=== PATIENT | female | born 1985 | race Caucasian/White ===

== ENCOUNTER 2016-11-20 08:12 | Outpatient (CLI) | payer OTHER | END 2016-11-20 08:13 | disposition home or self-care (01) | DX: E04.2 Nontoxic multinodular goiter (principal) ==

== ENCOUNTER 2016-11-20 09:57 | Outpatient (CLI) | payer OTHER | END 2016-11-20 09:58 | disposition home or self-care (01) | DX: E04.9 Nontoxic goiter, unspecified (principal); Z13.9 Encounter for screening, unspecified ==

== ENCOUNTER 2016-12-11 09:29 | Outpatient (CLI) | payer OTHER ==
[2016-12-11] MEDS ORDERED: BUFFERED LIDOCAINE 10 ML SYRINGE IU ONE (12:03)
== END 2016-12-11 09:30 | disposition home or self-care (01) ==
DX: E04.1 Nontoxic single thyroid nodule (principal)

== ENCOUNTER 2017-08-20 16:00 | Outpatient (CLI) | payer OTHER ==
--- NOTE | 2017-08-21 09:52 | XRAY Report ---
THREE-VIEW RIGHT THUMB: 08/20/2017 CLINICAL INDICATION: Pain. FINDINGS: AP, lateral, oblique views of the right thumb demonstrate no evidence of fracture or dislo cation. The joint spaces are preserved. No radiopaque foreign body is seen in the soft tissues. IMPRESSION: NORMAL RIGHT THUMB. JOB #: [id number] EXT JOB #:[id number]
--- NOTE | 2017-08-21 09:53 | XRAY Report ---
THREE-VIEW RIGHT HAND: 08/20/2017 CLINICAL INDICATION: Sprain, pain. FINDINGS: AP, lateral, oblique views of the right hand demonstrate no evidence of fracture or disloc ation. The joint spaces are preserved. No radiopaque foreign body is seen in the soft tissues. IMPRESSION: NORMAL RIGHT HAND. JOB #: [id number] EXT JOB #:[id number]
== END 2017-08-20 16:01 | disposition home or self-care (01) ==
LOC: DI.S 16:00
PROVIDERS: ATTEND Physician Assistant Medical
DX: S63.681A Other sprain of right thumb, initial encounter (principal)
CPT/HCPCS: 73140

== ENCOUNTER 2018-11-11 08:00 | Outpatient (CLI) | payer OTHER ==
--- NOTE | 2018-11-11 10:47 | Ultrasound Report ---
Reason: THYROID NODULE Procedure Date: 11/11/2018 Accession Number: [id number] / [id number] Procedure: US - Head or Neck Soft Tissue CPT Code: FULL RESULT: EXAM: THYROID ULTRASOUND EXAM DATE: 11/11/2018 08:20 AM. CLINICAL HISTORY: Thyroid nodule. COMPARISON: Head or neck soft tissue 11/20/2016 8:42 AM. Fine needle aspiration 12/11/2016 9:55 AM. TECHNIQUE: Real time sonographic imaging of the thyroid was performed by the business strategy manager. Multiple customer loyalty representative static images were saved for review. FINDINGS: THYROID GLAND: Right Lobe: 5.2 x 1.6 x 1.9 cm, volume 8.3 cc. Mildly heterogeneous background echotexture with mildly prominent vascularity of the thyroid gland, similar to prior. Right Lobe Nodules: None. Left Lobe: 6.7 x 2.0 x 2.3 cm, volume 16.1 cc. Normal background echotexture. Left Lobe Nodules: The previously biopsied superior pole vascular solid nodule measures 2.0 x 1.0 x 1.8 cm on today's exam (previously reported as 2.1 x 0.8 x 1.3 cm). The smaller hypoechoic vascular left upper pole nodule now measures 1.5 x 0.8 x 1.6 cm compared to a previous 1.4 x 0.7 x 1.3 cm. Isthmus: 0.33 cm AP. Isthmic Nodules: None. LYMPH NODES: No adenopathy demonstrated in the central or lateral compartment. OTHER: None. IMPRESSION: Interval evolution of the 2 known left superior pole thyroid nodules as described. Given sonographic features and size, tissue sampling of the smaller of the 2 nodules in the upper pole of the left thyroid gland is also warranted. Recommendation: FNA of the 1.6 cm hypoechoic left thyroid nodule. Management recommendations are based on 2015 [place] [employer] Management Guidelines for Adult Patients with Thyroid Nodules and Differentiated Thyroid Cancer. RADIA
== END 2018-11-11 08:01 | disposition home or self-care (01) ==
LOC: DI 08:00
PROVIDERS: ATTEND Physician Assistant Medical
DX: E04.1 Nontoxic single thyroid nodule (principal); E04.2 Nontoxic multinodular goiter
CPT/HCPCS: 76536

== ENCOUNTER 2018-11-11 08:03 | Outpatient (CLI) | payer OTHER | END 2018-11-11 08:04 | disposition home or self-care (01) | LOC: DI 08:03 | PROVIDERS: ATTEND Physician Assistant Medical | DX: R01.1 Cardiac murmur, unspecified (principal); E04.2 Nontoxic multinodular goiter | CPT/HCPCS: 76536; 93306 ==

== ENCOUNTER 2018-11-22 10:54 | Emergency (ER) | payer OTHER ==
[2018-11-22] MEDS ORDERED: MAG HYDROX/AL HYDROX/SIMETH 30 ML UDC PO STA (11:37)
[2018-11-22] MEDS ORDERED: LIDOCAINE VISCOUS 2% 15 ML UDC MM STA (11:37)
[2018-11-22 12:06] LABS: BASOPHILS % (AUTO) 0.5 %; EOSINOPHILS # (AUTO) 0.1 10^3/uL (0.0-0.7); EOSINOPHILS % (AUTO) 1.7 %; HGB - HEMOGLOBIN 14.1 g/dL (12.0-16.0); LYMPHOCYTES # (AUTO) 1.3 10^3/uL (1.5-3.5); LYMPHOCYTES % (AUTO) 17.5 %; MEAN CORPUSCULAR HEMOGLOBIN 31.3 pg (27.0-31.0); MEAN CORPUSCULAR HGB CONC 34.5 g/dL (32.0-36.0); MEAN CORPUSCULAR VOLUME 90.6 fL (81.0-99.0); MEAN PLATELET VOLUME 7.5 fL (7.9-10.8); MONOCYTES # (AUTO) 0.4 10^3/uL (0.0-1.0); NEUTROPHILS # (AUTO) 5.5 10^3/uL (1.5-6.6); NEUTROPHILS % (AUTO) 74.3 %; PLT - PLATELET COUNT 258 10^3/uL (130-450); RED BLOOD COUNT 4.49 10^6/uL (4.20-5.40); RED CELL DISTRIBUTION WIDTH 12.9 % (12.0-15.0); WHITE BLOOD COUNT 7.5 x10^3/uL (4.8-10.8)
[2018-11-22 12:19] LABS: ALBUMIN 4.4 g/dL (3.2-5.5); ALBUMIN/GLOBULIN RATIO 1.5 (1.0-2.2); BILIRUBIN,TOTAL 0.7 mg/dL (0.2-1.0); CALCIUM 9.1 mg/dL (8.5-10.3); CREATININE 0.5 mg/dL (0.4-1.0); TOTAL PROTEIN 7.4 g/dL (6.7-8.2)
--- NOTE | 2018-11-22 12:33 | ED Physician Documentation ---
PD HPI CHEST PAIN - Stated complaint Stated Complaint: CHEST PX/SOA - Chief complaint Chief Complaint: Cardiac - History obtained from History obtained from: Patient - History of Present Illness Timing - onset: How many days ago (6) Timing - onset during: Rest Timing - details: Intermittant Quality: Dull Location: Substernal Worsened by: Exertion Associated symptoms: Nausea (Yesterday, but not today.), Other (fatigued) Similar symptoms before: Work up / diagnostics (Cardiac ECHO 3 weeks ago was normal.) Recently seen: Clinic (diagnosed with musculoskeletal pain) - Additional information Additional information: The patient is a 33-year-old female who complains of substernal chest discomfort that she has had intermittently for the past 6 days. She has felt fatigued and chilled. She denies fever, cough, or shortness of breath. She felt nauseated yesterday but not today, and denies vomiting. Her symptoms are worse with exertion. She reports having similar symptoms about one month ago. She was seen in clinic at that time and was diagnosed with musculoskeletal pain. 3 weeks ago a cardiac echo was performed and it was reportedly normal. She was seen in clinic again 2 days ago, and was told that her symptoms clinically continued to suggest musculoskeletal etiology. She is concerned about the possibility of cardiac etiology because her father had an OR while in his 50s. Cardiac risk factors are otherwise negative, with no history of cigarette smoking, and no history of diabetes, hypertension, or hyperlipidemia. Review of Systems Constitutional: reports: Chills, Fatigue. denies: Fever Ears: denies: Tinnitus/ringing Nose: denies: Congestion Throat: denies: Sore throat Cardiac: reports: Chest pain / pressure. denies: Palpitations Respiratory: denies: Dyspnea, Cough GI: denies: Abdominal Pain, Nausea, Vomiting : denies: Dysuria Skin: denies: Rash Musculoskeletal: denies: Neck pain, Extremity pain, Extremity swelling Neurologic: denies: Focal weakness, Numbness, Headache PD PAST MEDICAL HISTORY - Past Medical History Past Medical History: Yes Cardiovascular: None Respiratory: None Endocrine/Autoimmune: None GI: None - Past Surgical History Ortho: Other - Allergies Allergies/Adverse Reactions: Allergies Allergy/AdvReac Type Severity Reaction Status Date / Time codeine AdvReac Edema Verified 08/14/15 08:49 - Social History Does the pt smoke?: No Smoking Status: Never smoker PD ED PE NORMAL - Vitals Vital signs reviewed: Yes (normal) - General General: Alert and oriented X 3, Well developed/nourished - HEENT HEENT: Atraumatic, Pharynx benign - Neck Neck: No adenopathy, No JVD - Cardiac Cardiac: RRR, No murmur - Respiratory Respiratory: No respiratory distress, Clear bilaterally, Other (Mild tenderness to palpation across the lower chest wall, anteriorly.) - Abdomen Abdomen: Soft, Non tender, No organomegaly - Back Back: No CVA TTP - Derm Derm: No rash - Extremities Extremities: No edema, No calf tenderness / cord - Neuro Neuro: Alert and oriented X 3, No motor deficit, No sensory deficit, Normal speech Results - Vitals Vitals: Oxygen O2 Source Room air - EKG (time done) 11:02 Rate: Rate (enter#) (61) Rhythm: NSR [place]: Normal Intervals: Normal [place] QRS: Normal Ischemia: Normal ST segments Computer interpretation: Agree with computer - Labs Labs: Laboratory Tests 11/22/18 11/22/18 11/22/18 11:55 11:55 11:55 WBC 7.5 RBC 4.49 Hgb 14.1 Hct 40.7 MCV 90.6 MCH 31.3 H MCHC 34.5 RDW 12.9 Plt Count 258 MPV 7.5 L Neut # (Auto) 5.5 Lymph # (Auto) 1.3 L [place] # (Auto) 0.4 Eos # (Auto) 0.1 Baso # (Auto) 0.0 Absolute Nucleated RBC 0.00 Nucleated RBC % 0.0 D-Dimer Sodium 136 Potassium 3.5 Chloride 103 Carbon Dioxide 25 Anion Gap 8.0 BUN 10 Creatinine 0.5 Estimated GFR (MDRD) 142 Glucose 100 Calcium 9.1 Total Bilirubin 0.7 AST 18 ALT 17 Alkaline Phosphatase 45 Troponin I < 0.04 Total Protein 7.4 Albumin 4.4 Globulin 3.0 Albumin/Globulin Ratio 1.5 Lipase 30 TSH 11/22/18 11/22/18 11:55 11:55 WBC RBC Hgb Hct MCV MCH MCHC RDW Plt Count MPV Neut # (Auto) Lymph # (Auto) [place] # (Auto) Eos # (Auto) Baso # (Auto) Absolute Nucleated RBC Nucleated RBC % D-Dimer 204.4 Sodium Potassium Chloride Carbon Dioxide Anion Gap BUN Creatinine Estimated GFR (MDRD) Glucose Calcium Total Bilirubin AST ALT Alkaline Phosphatase Troponin I Total Protein Albumin Globulin Albumin/Globulin Ratio Lipase TSH 1.81 - Rads (name of study) CXR Radiology: Prelim report reviewed, EMP read contemporaneously, See rad report (No acute cardiopulmonary abnormality detected.) PD MEDICAL DECISION MAKING - ED course Complexity details: reviewed results, re-evaluated patient, considered different ial, d/w patient, d/w family ED course: The cause of the patient's substernal chest discomfort is unclear at this time. I doubt cardiac etiology. Her electrocardiogram is completely normal, and troponin is negative. Her chest x-ray is normal, with no evidence to suggest pneumonia, pneumothorax, or abnormal mass. Pulmonary embolus is unlikely with a normal d-dimer. TSH is normal. Pleurisy is considered, but that would be unlikely to cause musculoskeletal tenderness to palpation. Gastroesophageal reflux was considered, but is unlikely. GI cocktail was administered, and had no impact on her symptoms. Although it is unclear what is causing the patient's symptoms, I do not think further emergent workup would be of clinical benefit. I discussed with her and her the negative results of her workup today, discussed symptomatic treatment and outpatient follow-up, as well as potentially worrisome signs or symptoms that should prompt reevaluation in the emergency department. Departure - Departure Disposition: 01 Home, Self Care Clinical Impression: Chest pain Qualifiers: Chest pain type: pleurodynia Qualified Code(s): R07.81 - Pleurodynia Condition: Stable Instructions: ED Chest Pain Atypical Unkn Cause Follow-Up: Vidya Bolton PA-C [Primary Care Provider] - Comments: You can use ibuprofen, up to 800 mg 3 times daily for its anti-inflammatory effect. Follow-up with your primary physician within 1-2 weeks. Call to schedule appointment. Return to the emergency department if you develop increasing pain, increasing difficulty breathing, or otherwise worsening symptoms. Discharge Date/Time: 11/22/18 14:45
--- NOTE | 2018-11-22 12:34 | XRAY Report ---
Reason: chest pain Procedure Date: 11/22/2018 Accession Number: [id number] / [id number] Procedure: XR - Chest 1 View X-Ray CPT Code: 95775 FULL RESULT: EXAM: CHEST RADIOGRAPHY EXAM DATE: 11/22/2018 12:00 PM. CLINICAL HISTORY: Chest pain. COMPARISON: None available. TECHNIQUE: 1 view. FINDINGS: Lungs/Pleura: No focal opacities evident. No pleural effusion. No pneumothorax. Mediastinum: Within exam limitations, the cardiomediastinal contour is normal. Other: None. IMPRESSION: Grossly clear. RADIA
[2018-11-22 14:45] VITALS: BP 113/72
== END 2018-11-22 14:45 | disposition home or self-care (01) ==
LOC: ED 10:54
DX: R07.81 Pleurodynia (principal)
CPT/HCPCS: 36415; 71045; 80053; 83690; 84443; 84484; 85025; 85379; 93005; 99283; 99284; A9270

== ENCOUNTER 2019-05-30 13:54 | Outpatient (CLI) | payer OTHER | END 2019-05-30 13:55 | disposition home or self-care (01) | LOC: LAB.S 13:54 | DX: Z33.2 Encounter for elective termination of pregnancy (principal) | CPT/HCPCS: 36415; 84702; 84703 ==

== ENCOUNTER 2020-11-11 08:00 | Outpatient (CLI) | payer OTHER | END 2020-11-11 23:59 | disposition home or self-care (01) | LOC: LAB.R 08:00 | PROVIDERS: ATTEND Physician Assistant Medical | DX: R30.0 Dysuria (principal) | CPT/HCPCS: 87086 ==

== ENCOUNTER 2021-01-01 11:28 | Emergency (ER) | payer OTHER ==
--- NOTE | 2021-01-01 11:45 | ED Physician Documentation ---
PD HPI FEMALE - Stated complaint Stated Complaint: FEMALE - Chief complaint Chief Complaint: Abd Pain - History obtained from History obtained from: Patient - History of Present Illness Timing - onset: Today Timing - duration: Hours Timing - details: Abrupt onset, Now resolved (She noted the Milner drain once she stood up. Denies any hematuria nor clots.) Associated symptoms: Abdominal pain, Vaginal bleeding (mild vaginal bleeding and states mild odor.), Other (She had vaginal hysterectomy and attempted bladder sling. She reports the bladder was nicked and so a Milner was placed to maintain emptiness of the bladder. The sling was not placed with that. She was doing okay and noted cramping pain while lying in bed in the Milner bag was not having urine.). No: Fever, Back pain, Pelvic pain Similar symptoms before: Has not had sx before Recently seen: Surgery ([address] [facility] for bladder prolapse and uterine prolapse. Had Hyst and attempted bladder sling, but bladder nicked, per pt, and milner placed to allow bladder healing without fullness.) Review of Systems Constitutional: denies: Fever, Chills Nose: denies: Rhinorrhea / runny nose, Congestion Throat: denies: Sore throat Respiratory: denies: Cough GI: denies: Nausea, Vomiting, Diarrhea Neurologic: denies: Generalized weakness, Near syncope Immunocompromised: denies: Immunocompromised PD PAST MEDICAL HISTORY - Past Medical History Cardiovascular: None Respiratory: None Endocrine/Autoimmune: None GI: None - Past Surgical History Ortho: Other - Present Medications Home Medications: Ambulatory Orders Medication Instructions Recorded Confirmed Metoprolol Tartrate [Lopressor] 1 tab PO DAILY 01/01/21 01/01/21 Nitrofurantoin Monohyd/M-Cryst 1 tab PO BID 01/01/21 01/01/21 [Macrobid 100 mg Capsule] - Allergies Allergies/Adverse Reactions: Allergies Allergy/AdvReac Type Severity Reaction Status Date / Time codeine AdvReac Edema Verified 01/01/21 11:37 - Social History Does the pt smoke?: No Smoking Status: Never smoker PD ED PE NORMAL - Vitals Vital signs reviewed: Yes - General General: Alert and oriented X 3, No acute distress, Well developed/nourished - Cardiac Cardiac: RRR, No murmur - Respiratory Respiratory: Clear bilaterally - Abdomen Abdomen: Normal bowel sounds, Soft, Non distended, No organomegaly, Other (Wounds are healing well without any signs of infection at the laparoscopic insertion sites.) - Female Female : Other (Milner in place with apparent good drainage and no signs of clots nor hematuria. Female exam was deferred but a self swab was obtained by the patient.) - Rectal Rectal: Deferred - Back Back: No CVA TTP Results - Vitals Vitals: Vital Signs - 24 hr 01/01/21 01/01/21 01/01/21 11:32 11:50 12:44 Temperature 36.6 C Heart Rate 82 77 68 Respiratory 20 16 16 Rate Blood Pressure 126/81 H 121/83 H 108/70 O2 Saturation 100 100 100 Oxygen O2 Source Room air PD MEDICAL DECISION MAKING - ED course Complexity details: considered differential (She was having lower abd cramping and milner not draining while lying, and emptied when stood up. No fever. No hematuria nor clots. Presume was not draining in dependent portion of dropped bladder. ), d/w patient Departure - Departure Disposition: Home, Self Care Clinical Impression: Visit for wound check, Milner catheter present Condition: Stable Record reviewed to determine appropriate education?: Yes Comments: Your wounds appear good at this time. The vaginal screening test will result later or tomorrow we will call you if there is any signs of bacterial vaginosis postoperatively. The bladder drainage is appropriate right now. I presume there was less drainage because of the position when you are laying down. You may try a sleeping elevated head of bed with several pillows or such and see if that promotes better drainage while the Milner is in. Follow-up as planned with your provider. Discharge Date/Time: 01/01/21 12:50
[2021-01-01] MEDS ORDERED: IBUPROFEN 600 MG TABLET PO STA (12:03)
[2021-01-01 12:45] VITALS: BP 108/70
[2021-01-01 14:05] LABS: BACTERIAL VAGINOSIS DNA NEGATIVE (NEGATIVE); CANDIDA GLABRATA DNA NEGATIVE (NEGATIVE); CANDIDA GROUP DNA NEGATIVE (NEGATIVE); CANDIDA KRUSEI DNA NEGATIVE (NEGATIVE); TRICHOMONAS VAGINALIS DNA NEGATIVE (NEGATIVE)
== END 2021-01-01 12:50 | disposition home or self-care (01) ==
LOC: ED 11:28
DX: R10.30 Lower abdominal pain, unspecified (principal); Z48.01 Encounter for change or removal of surgical wound dressing; Z98.890 Other specified postprocedural states; Z90.710 Acquired absence of both cervix and uterus; N93.9 Abnormal uterine and vaginal bleeding, unspecified
CPT/HCPCS: 51798; 87661; 87801; 99282; 99283

== ENCOUNTER 2021-01-08 15:47 | Outpatient (CLI) | payer OTHER ==
[2021-01-08 19:14] LABS: BILIRUBIN,URINE NEGATIVE (NEGATIVE); CLARITY,URINE CLEAR (CLEAR); GLUCOSE, URINE (UA) NEGATIVE (NEGATIVE); KETONES,URINE (UA) NEGATIVE (NEGATIVE); LEUKOCYTE ESTERASE, URINE NEGATIVE (NEGATIVE); NITRITE,URINE NEGATIVE (NEGATIVE); OCCULT BLOOD,URINE NEGATIVE (NEGATIVE); PH,URINE 5.5 PH (5.0-7.5); PROTEIN,URINE NEGATIVE (NEGATIVE); UROBILINOGEN,URINE 0.2 (NORMAL) E.U./dL (NORMAL)
== END 2021-01-08 15:48 | disposition home or self-care (01) ==
LOC: LAB.S 15:47
DX: R39.89 Other symptoms and signs involving the genitourinary system (principal); Z98.890 Other specified postprocedural states
CPT/HCPCS: 81001; 81003; 87086

== ENCOUNTER 2021-11-16 08:00 | Outpatient (CLI) | payer OTHER ==
[2021-11-16 20:33] LABS: BILIRUBIN,URINE NEGATIVE (NEGATIVE); GLUCOSE, URINE (UA) NEGATIVE (NEGATIVE); KETONES,URINE (UA) NEGATIVE (NEGATIVE); LEUKOCYTE ESTERASE, URINE NEGATIVE (NEGATIVE); NITRITE,URINE NEGATIVE (NEGATIVE); OCCULT BLOOD,URINE NEGATIVE (NEGATIVE); PROTEIN,URINE NEGATIVE (NEGATIVE); UROBILINOGEN,URINE 0.2 (NORMAL) E.U./dL (NORMAL)
[2021-11-16 20:35] LABS: CLARITY,URINE CLEAR (CLEAR)
[2021-11-16 20:43] LABS: BACTERIA,URINE Rare /HPF (None Seen); RBC,URINE 0-5 /HPF (0-5); SQUAMOUS EPITHELIAL CELL,UR FEW Squamous (<= Few); WBC,URINE 0-3 /HPF (0-5)
== END 2021-11-16 23:59 ==
LOC: LAB 08:00
PROVIDERS: ATTEND Physician Assistant Medical
DX: R39.89 Other symptoms and signs involving the genitourinary system (principal); R10.2 Pelvic and perineal pain; N30.90 Cystitis, unspecified without hematuria
CPT/HCPCS: 81001; 87086

== ENCOUNTER 2023-03-26 08:58 | Outpatient (CLI) | payer BC, OTHER ==
--- NOTE | 2023-03-27 12:53 | Mammography Report ---
BILATERAL FIRST EVER DIGITAL SCREENING MAMMOGRAM 3D/2D WITH EXAGGERATED CC: 03/26/2023 CLINICAL: Routine screening. Baseline exam. Family history of breast cancer. No prior exams were available for comparison. There are scattered areas of fibroglandular density in both breasts (category b / 25%-50% glandular t issue). No significant masses, calcifications, or other findings are seen in either breast. IMPRESSION: NEGATIVE There is no mammographic evidence of malignancy. A 1 year screening mammogram is recommended. Based on Tyrer-Cuzick model (a risk assessment model), the patient's lifetime risk is 25.4% and her 1 0 year risk is 2.8%. If a patient has an elevated risk, a more comprehensive evaluation should be con sidered and/or a referral to a genetic counselor. The [place] [employer], [place] [employer], and NCCN Guidelines advise the consideration of Breast MRI as an adjunct to screening mammog bobo in patients whose "Lifetime risk to develop breast cancer" is 20% or higher. This exam was interpreted at Station ID: [id number]. NOTE: For mammograms, a report in lay terms will be sent to the patient. Approximately 15% of breast malignancies will not be visualized mammographically. In the management of a palpable breast mass, a negative mammogram must not discourage biopsy of a clinically suspicious lesion. Electronically Signed By: Barrett cohn/fer:03/26/2023 18:28:29 letter sent: No_Letter ACR BI-RADS Category 1: Negative 3341F PARENCHYMAL PATTERN: (A) - The breast(s) demonstrate(s) scattered fibroglandular densities. BI-RADS CATEGORY: (1) - 1 Mammogram [id number] 1 year screening LATERALITY: (B)
== END 2023-03-26 08:59 | disposition home or self-care (01) ==
LOC: DI.S 08:58
PROVIDERS: ATTEND Naturopath
DX: Z12.31 Encounter for screening mammogram for malignant neoplasm of breast (principal); Z80.3 Family history of malignant neoplasm of breast

== ENCOUNTER 2023-12-13 14:53 | Outpatient (CLI) | payer BC, OTHER | END 2023-12-13 14:54 | disposition home or self-care (01) | LOC: RT 14:53 | PROVIDERS: ATTEND Naturopath | DX: I49.9 Cardiac arrhythmia, unspecified (principal) | CPT/HCPCS: 93005 ==

== ENCOUNTER 2024-01-05 11:11 | Outpatient (CLI) | payer BC, OTHER ==
--- NOTE | 2024-01-06 09:30 | Ultrasound Report ---
PROCEDURE: Soft Tissue Head or Neck INDICATIONS: GOITER TECHNIQUE: Real-time scanning was performed of the thyroid gland, with image documentation. COMPARISON: 11/11/2018 FINDINGS: Right: Thyroid lobe measures 5.4 x 1.6 x 1.9 cm, and is heterogeneous in echotexture. Left: Thyroid lobe measures 5.7 x 1.9 x 2.2 cm, and is heterogeneous in echotexture. Isthmus: 0.2 cm thick. Nodule number: 1 Location: Right middle pole Size: 1.3 x 1.3 x 0.6 cm. Composition: Solid (2 points). Echogenicity: Hypoechoic (2 points). Shape: wider than tall (0 points). Margins: Smooth (0 points). Echogenic foci: None (0 points). Total points: 4 ACR TI-RADS category: TI-RADS 4: Moderately suspicious. Nodule number: 2 Location: Left upper pole Size: 1.6 x 2.2 x 0.7 cm, previously 1.8 x 2.0 x 1.0 cm. Composition: Solid (2 points). Echogenicity: Hypoechoic (2 points). Shape: wider than tall (0 points). Margins: Smooth (0 points). Echogenic foci: None (0 points). Total points: 4 ACR TI-RADS category: TI-RADS 4: Moderately suspicious. IMPRESSION: Multinodular goiter. Findings include a left upper pole nodule which has moderately susp icious imaging characteristics and a maximum size of 2.2 cm. Based on ACR guidelines, FNA of this les ion is recommended, if this lesion has not previously been sampled with a benign diagnosis. ACR TI-RADS definitions and recommendations: TI-RADS 1 (benign): 0 points. FNA not needed. TI-RADS 2 (not suspicious): 2 points. FNA not needed. TI-RADS 3 (mildly suspicious): 3 points. "FNA if 2.5 cm or larger, follow up if 1.5 cm or larger (at 1, 3, and 5 years). TI-RADS 4 (moderately suspicious): 4-6 points. "FNA if 1.5 cm or larger, follow up if 1 cm or larger (at 1, 2, 3, and 5 years). TI-RADS 5 (highly suspicious): 7 points or more. "FNA if 1 cm or larger, follow up if 0.5 cm or larger (every year for 5 years). Reviewed by: Jose Lopez MD on 01/06/2024 9:28 AM PDT Approved by: Jose Lopez MD on 01/06/2024 9:28 AM PDT Station ID: [id number]
== END 2024-01-05 11:12 | disposition home or self-care (01) ==
LOC: DI 11:11
PROVIDERS: ATTEND Nurse Practitioner Family
DX: E04.2 Nontoxic multinodular goiter (principal)

== ENCOUNTER 2024-02-04 10:00 | Outpatient (CLI) | payer BC, OTHER ==
[~2024-02-04 10:00] MED LIST: LIDOCAINE-MPF 1% 5 ML VIAL ONE
== END 2024-02-04 10:01 | disposition home or self-care (01) ==
LOC: DI 10:00
PROVIDERS: ATTEND Nurse Practitioner Family
DX: Z53.9 Procedure and treatment not carried out, unspecified reason (principal)